=== PATIENT | male | born 1970 | race Two or more races ===

== ENCOUNTER 2017-06-12 08:10 | Emergency (ER) | payer MEDICAID ==
[~2017-06-12] VITALS: Ht 165.1 cm; Wt 79.4 kg
[2017-06-12 08:13] VITALS: BP 125/96
--- NOTE | 2017-06-12 08:18 | NUR ---
Patient to bed 11.
--- NOTE | 2017-06-12 08:25 | NUR ---
46/m bib self c/o LBP x 2MO. PT STATES HE HAD SURGERY TO IMPLANT DEVICE IN HIS LEFT LOW BACK 03/2017 AND HAS HAD PAIN INTERMITTENTLY SINCE THAT TIME. HX HTN, [facility] SURGURY IN 2009. DENIES N/V/D; SKIN IS PINK/WARM/DRY; AAOX4 WITH EVEN AND STEADY GAIT; LUNGS CLEAR BL; HR EVEN AND REGULAR; PATIENT STATES PAIN OF 8/10 AT THIS TIME; VSS; PATIENT POSITIONED FOR COMFORT; HOB ELEVATED; BEDRAILS UP X2; BED DOWN. ER MD MADE AWARE OF PT STATUS.
--- NOTE | 2017-06-12 08:31 | NUR ---
Patient being evaluated by DR PATEL AT BEDSIDE.
[2017-06-12] MEDS ORDERED: KETOROLAC 60 MG/2 ML VIAL IM ONE (08:45)
--- NOTE | 2017-06-12 09:04 | NUR ---
Patient appears to be resting comfortably in bed. PT STATED BACK PAIN 4/10 AT THIS TIME. Vital Signs within normal limits. Respirations even and unlabored.WILL CONTINUE TO MONITOR.
[2017-06-12 09:41] VITALS: BP 118/72
--- NOTE | 2017-06-12 09:41 | NUR ---
Patient discharged with v/s stable. Written and verbal after care instructions given and explained. Patient verbalized understanding. Ambulatory with steady gait. All questions addressed prior to discharge. Advised to follow up with PMD.
== END 2017-06-12 09:41 | disposition home or self-care (01) ==
LOC: MED 08:10
DX: M54.5 Low back pain (principal); I10 Essential (primary) hypertension
CPT/HCPCS: 96372; 99283; J1885

== ENCOUNTER 2017-06-17 08:11 | Emergency (ER) | payer MEDICAID ==
[~2017-06-17] VITALS: Ht 167.6 cm; Wt 80.9 kg
[2017-06-17 08:26] VITALS: BP 116/72
--- NOTE | 2017-06-17 08:32 | NUR ---
PT TAKEN TO BED 11.
--- NOTE | 2017-06-17 08:34 | NUR ---
46M BIB SELF WITH C/O INTERMITTENT RIGHT LOWER BACK PAIN 8/10 WORSE LAST NIGHT WITH NAUSEA; DENIES V/D; PT DENIES ANY INCONTINENCE OR LOSS OF BOWEL CONTROL; CMS INTACT BL; PT REPORTS HAD BACK SURGERY ON 04/17/2017 FOR PAIN MANAGEMENT; PT IS AOX4, RR ARE EVEN AND UNLABORED. PT POSITIONED TO COMFORT, BED DOWN. ALL NEEDS MET AT THIS TIME.
--- NOTE | 2017-06-17 08:35 | NUR ---
Patient being evaluated by Dr. Purcell at bedside.
[2017-06-17] MEDS ORDERED: HYDROmorphone 1 MG/ML AMP IM ONE (08:40)
[2017-06-17] MEDS ORDERED: HYDROmorphone PFS 2 MG/ML SYR ONE (08:55)
[2017-06-17 09:13] VITALS: BP 134/84
== END 2017-06-17 09:13 | disposition home or self-care (01) ==
LOC: MED 08:11
DX: G89.29 Other chronic pain (principal); M54.5 Low back pain; I10 Essential (primary) hypertension
CPT/HCPCS: 96372; 99283; J1170

== ENCOUNTER 2017-08-06 18:36 | Emergency (ER) | payer SELFPAY | END 2017-08-06 18:58 | disposition left against medical advice (07) | LOC: MED 18:36 | DX: Z53.21 Procedure and treatment not carried out due to patient leaving prior to being seen by health care provider (principal) ==

== ENCOUNTER 2017-08-06 20:39 | Emergency (ER) | payer MEDICAID ==
[~2017-08-06] VITALS: Ht 167.6 cm; Wt 80.3 kg
[2017-08-06 20:44] VITALS: BP 131/79
--- NOTE | 2017-08-06 20:55 | NUR ---
Rebeca nolasco in [facility] - 08/06/17 at 2101 by LORRIE PT TAKEN TO [facility]
--- NOTE | 2017-08-06 21:05 | NUR ---
Pt statse he was at work when he bent over when the pain started. Pt states it started 1 week ago. pt states he has a pain modulation unit inserted into the left lower sacral area to control pain. Pt states at the moment, his device is not working and the pain is intering with adl's. Pt denies numbness or tingling of lower extremities. ER MD aware. Continue to monitor.
--- NOTE | 2017-08-06 21:05 | NUR ---
PT TAKEN TO BED 2
[2017-08-06] MEDS ORDERED: MORPHINE SULFATE 10 MG/ML SYR IM ONE (21:10)
[2017-08-06 23:32] VITALS: BP 131/79
== END 2017-08-06 23:32 | disposition home or self-care (01) ==
LOC: MED 20:39
DX: G89.29 Other chronic pain (principal); M54.5 Low back pain; I10 Essential (primary) hypertension
CPT/HCPCS: 96372; 99283; J2270

== ENCOUNTER 2017-08-17 21:35 | Emergency (ER) | payer MEDICAID ==
[~2017-08-17] VITALS: Ht 167.6 cm; Wt 80.3 kg
[2017-08-17 21:41] VITALS: BP 108/64
--- NOTE | 2017-08-17 21:47 | NUR ---
PT. AMBULATED TO [facility]
[2017-08-17 22:10] VITALS: BP 108/64
--- NOTE | 2017-08-17 22:10 | NUR ---
PATIENT PRESENTS TO ED WITH C/O BACK PAIN X 1 DAY. PAIN RADIATES TO LT. LEG. MED HX. HTN, BACK SX. WITH PROSTHESIS PT DENIES N/V/D; SKIN IS PINK/WARM/DRY; AAOX4 WITH EVEN AND STEADY GAIT; LUNGS CLEAR BL; HR EVEN AND REGULAR; PT DENIES ANY FEVER, CP, SOB, OR COUGH AT THIS TIME; PATIENT STATES PAIN OF 9/10 AT THIS TIME; VSS; PATIENT POSITIONED FOR COMFORT; HOB ELEVATED; BEDRAILS UP X2; BED DOWN. ER MD MADE AWARE OF PT STATUS.
[2017-08-17] MEDS ORDERED: MORPHINE SULFATE 4 MG/ML SYR IM ONE (22:40)
== END 2017-08-17 23:15 | disposition home or self-care (01) ==
LOC: MED 21:35
DX: G89.29 Other chronic pain (principal); M54.5 Low back pain; I10 Essential (primary) hypertension
CPT/HCPCS: 96372; 99283; J2270

== ENCOUNTER 2017-09-04 21:08 | Emergency (ER) | payer MEDICAID ==
[~2017-09-04] VITALS: Ht 167.6 cm; Wt 81.8 kg
[2017-09-04 21:11] VITALS: BP 135/62
[2017-09-04 21:22] VITALS: BP 127/80
--- NOTE | 2017-09-04 21:26 | NUR ---
PT. AMBULATED TO ER CHD
--- NOTE | 2017-09-04 21:35 | NUR ---
47Y/M PT. PRESENST TO ED WITH C/O BACK AND LEG PAIN, CHRONIC. AAO X4, AMBULATORY WITH STEADY GAIT. RESPIRTAIONS ROOM AIR, EVEN AND UNLABORED. C/O PAIN 03/10. VSS, ER MADE AWARE OF PT. STATUS.
--- NOTE | 2017-09-04 21:38 | NUR ---
Patient being evaluated by at bedside.
--- NOTE | 2017-09-04 21:40 | NUR ---
Patient discharged with v/s stable. Written and verbal after care instructions given and explained. Patient verbalized understanding. Ambulatory with steady gait. All questions addressed prior to discharge. Advised to follow up with PMD. PT. REFUSED TO SIGN D/C PAPER, BUT TOOK D/C INSTRUCTION.
[2017-09-04 22:00] VITALS: BP 127/80
== END 2017-09-04 21:40 | disposition home or self-care (01) ==
LOC: MED 21:08
DX: M54.9 Dorsalgia, unspecified (principal); I10 Essential (primary) hypertension
CPT/HCPCS: 99281

== ENCOUNTER 2021-05-14 06:00 | Emergency (ER) | payer MEDICAID ==
[~2021-05-14] VITALS: Ht 172.7 cm; Wt 70.3 kg
[2021-05-14 06:04] VITALS: BP 128/85
--- NOTE | 2021-05-14 06:11 | NUR ---
PT TAKEN TO BED 2
[2021-05-14] MEDS ORDERED: KETOROLAC 60 MG/2 ML VIAL IM ONE (06:15)
--- NOTE | 2021-05-14 06:36 | NUR ---
patient to xr via wc
--- NOTE | 2021-05-14 06:49 | NUR ---
patient back from xr via w/c
--- NOTE | 2021-05-14 07:12 | NUR ---
Pt report given to Kandy LARKIN. Transfer of care at this time.
[2021-05-14] MEDS ORDERED: NAPR-54 PO (07:58)
[2021-05-14 08:05] VITALS: BP 128/76
--- NOTE | 2021-05-14 08:05 | NUR ---
Patient discharged with v/s stable. Written and verbal after care instructions given and explained with teachback. Patient alert, oriented and verbalized understanding of instructions. Ambulatory with steady gait. All questions addressed prior to discharge. ID band removed. Patient advised to follow up with PMD. Rx of naproxen given. Patient educated on indication of medication including possible reaction and side effects. Opportunity to ask questions provided and answered.
== END 2021-05-14 08:05 | disposition home or self-care (01) ==
LOC: MED 06:00
DX: S43.402A Unspecified sprain of left shoulder joint, initial encounter (principal); M54.9 Dorsalgia, unspecified; G89.29 Other chronic pain; I10 Essential (primary) hypertension; Z79.899 Other long term (current) drug therapy; Z98.890 Other specified postprocedural states; X58.XXXA Exposure to other specified factors, initial encounter; Y93.89 Activity, other specified; Y92.89 Other specified places as the place of occurrence of the external cause; Y99.8 Other external cause status
CPT/HCPCS: 72100; 73030; 96372; 99284; J1885

== ENCOUNTER 2022-06-08 19:09 | Emergency (ER) | payer MEDICAID, OTHER ==
[~2022-06-08] VITALS: Ht 167.6 cm; Wt 83.9 kg
[~2022-06-08 19:09] MED LIST: NAPR-54 PO
--- NOTE | 2022-06-08 19:23 | NUR ---
PT CALLED IN LOBBY. NO ANSWER
[2022-06-08 19:28] VITALS: BP 130/70
--- NOTE | 2022-06-08 19:35 | NUR ---
TO BED 8 FOLLOWING TRIAGE
[2022-06-08 20:16] VITALS: BP 113/75
--- NOTE | 2022-06-08 21:41 | NUR ---
PATIENT LWBS. STATED THAT "I HAVE TO GO". HE DID NOT WANT TO WAIT FOR PROVIDER TO ASSESS HIM.
== END 2022-06-08 21:41 | disposition left against medical advice (07) ==
LOC: MED 19:09
DX: M54.50 Low back pain, unspecified (principal); Z53.21 Procedure and treatment not carried out due to patient leaving prior to being seen by health care provider

== ENCOUNTER 2023-04-20 17:38 | Emergency (ER) | payer OTHER ==
[~2023-04-20] VITALS: Ht 167.6 cm; Wt 87.1 kg
[2023-04-20 18:08] VITALS: BP 111/70; PULSE 66; RESP 18; TEMP 98.1; O2SAT 97
[2023-04-20] MEDS ORDERED: KETOROLAC 30 MG/ML VIAL IM ONE (19:05)
[2023-04-20 19:19] VITALS: BP 111/70; PULSE 66; RESP 18; TEMP 98.1; O2SAT 97
== END 2023-04-20 19:19 | disposition home or self-care (01) ==
LOC: MED 17:38
DX: S93.402A Sprain of unspecified ligament of left ankle, initial encounter (principal); I11.9 Hypertensive heart disease without heart failure; Z79.899 Other long term (current) drug therapy; W22.8XXA Striking against or struck by other objects, initial encounter; Y93.89 Activity, other specified; Y92.89 Other specified places as the place of occurrence of the external cause; Y99.8 Other external cause status
CPT/HCPCS: 73610; 99283

== ENCOUNTER 2024-02-17 23:30 | Emergency (ER) | payer OTHER ==
[~2024-02-17] VITALS: Ht 167.6 cm; Wt 86.6 kg
[~2024-02-17 23:30] MED LIST changes: +NAPR-337 PO; -NAPR-54 PO
[2024-02-17 23:38] VITALS: BP 139/91; PULSE 58; RESP 14; TEMP 98.6; O2SAT 99
[2024-02-18 00:15] VITALS: BP 134/81; PULSE 56; RESP 18; TEMP 97.7
[2024-02-18 00:19] VITALS: O2SAT 98
[2024-02-18] MEDS: KETOROLAC 30 MG/ML VIAL IM ONE (00:29)
== END 2024-02-18 02:52 | disposition home or self-care (01) ==
LOC: MED 23:30
DX: S39.92XA Unspecified injury of lower back, initial encounter (principal); M79.605 Pain in left leg; E78.5 Hyperlipidemia, unspecified; I10 Essential (primary) hypertension; Z98.890 Other specified postprocedural states; Z79.899 Other long term (current) drug therapy; W01.0XXA Fall on same level from slipping, tripping and stumbling without subsequent striking against object, initial encounter; Y92.89 Other specified places as the place of occurrence of the external cause; Y93.89 Activity, other specified; Y99.8 Other external cause status
CPT/HCPCS: 72131; 96372; 99285; J1885